=== PATIENT | male | born 1990 | race American Indian/Alaskan Native ===

== ENCOUNTER 2017-12-19 08:18 | Emergency (ER) | payer OTHER ==
--- NOTE | 2017-12-19 13:08 | Emergency Department Report ---
ED Asthma HPI - General Chief Complaint: Adult Asthma Stated Complaint: [place] Time Seen by Provider: 12/19/17 12:25 Source: patient, EMS Mode of arrival: Ambulatory Limitations: No Limitations - History of Present Illness Initial Comments: Patient is a 27-year-old male who has a past medical history of asthma who is presenting with cough cold congestion. Patient states that for the past 2-3 days he's had some increased itching coughing wheezing shortness of breath. Patient states that he was walking to work today and became very short of breath and could not breathe and had to call paramedics. Patient was received today and last treatment before arrival. Patient denies any fever or sore throat chest pain at this time. Patient did state that he had some pressure on the chest before arrival. - Related Data Previous Rx's Medication Instructions Recorded Last Taken Type Acetaminophen/Codeine [Tylenol #3] 1 tab PO Q6H PRN #15 tab 04/24/15 Unknown Rx Cyclobenzaprine HCl [Flexeril 5 MG 5 mg PO TID PRN #20 tab 04/24/15 Unknown Rx TAB] Ibuprofen [Motrin 800 MG tab] 800 mg PO Q8HR PRN #30 tablet 04/24/15 Unknown Rx Cyclobenzaprine [Flexeril 10 MG 10 mg PO TID PRN #15 tablet 06/18/15 Unknown Rx TAB] Ibuprofen [Motrin 800 MG tab] 800 mg PO Q8HR PRN #20 tablet 06/18/15 Unknown Rx Ibuprofen [Motrin] 800 mg PO Q8HR PRN #15 tablet 08/14/16 Unknown Rx ALBUTEROL Inhaler [ProAir HFA 2 puff IH QID PRN #1 inhalation 12/19/17 Unknown Rx Inhaler] Loratadine [Claritin] 10 mg PO DAILY #30 tablet 12/19/17 Unknown Rx methylPREDNISolone [Medrol Dose 4 mg PO QAM #1 pack 12/19/17 Unknown Rx Daniel] Allergies Allergy/AdvReac Type Severity Reaction Status Date / Time almond oil Allergy Anaphylaxis Verified 04/24/15 18:56 banana Allergy Anaphylaxis Verified 04/24/15 18:56 cavanaugh flavor Allergy Swelling Verified 04/24/15 18:56 ED Review of Systems ROS: Stated complaint: [place] Other details as noted in HPI Comment: All other systems reviewed and negative ED Past Medical Hx - Past Medical History Previous Medical History?: Yes Hx Asthma: Yes Additional medical history: HEART MURMUR - Surgical History Past Surgical History?: Yes Hx Appendectomy: Yes - Social History Smoking Status: Current Every Day Smoker Substance Use Type: Alcohol, Marijuana - Medications Home Medications: Home Medications Medication Instructions Recorded Confirmed Last Taken Type Acetaminophen/Codeine [Tylenol #3] 1 tab PO Q6H PRN #15 tab 04/24/15 Unknown Rx Cyclobenzaprine HCl [Flexeril 5 MG 5 mg PO TID PRN #20 tab 04/24/15 Unknown Rx TAB] Ibuprofen [Motrin 800 MG tab] 800 mg PO Q8HR PRN #30 tablet 04/24/15 Unknown Rx Cyclobenzaprine [Flexeril 10 MG 10 mg PO TID PRN #15 tablet 06/18/15 Unknown Rx TAB] Ibuprofen [Motrin 800 MG tab] 800 mg PO Q8HR PRN #20 tablet 06/18/15 Unknown Rx Ibuprofen [Motrin] 800 mg PO Q8HR PRN #15 tablet 08/14/16 Unknown Rx ALBUTEROL Inhaler [ProAir HFA 2 puff IH QID PRN #1 inhalation 12/19/17 Unknown Rx Inhaler] Loratadine [Claritin] 10 mg PO DAILY #30 tablet 12/19/17 Unknown Rx methylPREDNISolone [Medrol Dose 4 mg PO QAM #1 pack 12/19/17 Unknown Rx Daniel] ED Physical Exam - General Limitations: No Limitations General appearance: alert, in no apparent distress - Head Head exam: Present: atraumatic, normocephalic - Eye Eye exam: Present: normal appearance - ENT ENT exam: Present: mucous membranes moist - Neck Neck exam: Present: normal inspection - Respiratory Respiratory exam: Present: normal lung sounds bilaterally. Absent: respiratory distress, wheezes, rales, rhonchi - Cardiovascular Cardiovascular Exam: Present: regular rate, normal rhythm. Absent: systolic murmur, diastolic murmur, rubs, gallop - GI/Abdominal GI/Abdominal exam: Present: soft, normal bowel sounds. Absent: distended, tenderness, guarding, rebound - Rectal Rectal exam: Present: deferred - Extremities Exam Extremities exam: Present: normal inspection - Back Exam Back exam: Present: normal inspection - Neurological Exam Neurological exam: Present: alert, oriented X3 - Psychiatric Psychiatric exam: Present: normal affect, normal mood - Skin Skin exam: Present: warm, dry, intact, normal color. Absent: rash ED Course Vital Signs 12/19/17 08:53 Temperature 98.3 F Pulse Rate 73 Respiratory 18 Rate Blood Pressure 146/88 O2 Sat by Pulse 97 Oximetry ED Medical Decision Making - Medical Decision Making Patient is a 27-year-old Male who is presenting with allergic rhinitis-type symptoms with asthma. Patient will be given several minutes to help with his symptoms including albuterol inhaler and prednisone and maintenance antihistamine will be discharged home at this time. Critical care attestation.: If time is entered above; I have spent that time in minutes in the direct care of this critically ill patient, excluding procedure time. ED Disposition Clinical Impression: Allergic rhinitis Qualifiers: Allergic rhinitis trigger: unspecified Allergic rhinitis seasonality: seasonal Qualified Code(s): J30.2 - Other seasonal allergic rhinitis Asthma exacerbation Qualifiers: Asthma severity: moderate Disposition: DC-01 TO HOME OR SELFCARE Is pt being admited?: No Does the pt Need Aspirin: No Condition: Stable Instructions: Asthma (ED), Allergic Rhinitis (ED) Prescriptions: ALBUTEROL Inhaler [ProAir HFA Inhaler] 2 puff IH QID PRN #1 inhalation PRN Reason: Shortness Of Breath Loratadine [Claritin] 10 mg PO DAILY #30 tablet methylPREDNISolone [Medrol Dose Daniel] 4 mg PO QAM #1 pack Referrals: PRIMARY CARE, [Primary Care Provider] - 3-5 Days
[2017-12-19 13:30] VITALS: BP 142/99
== END 2017-12-19 13:29 | disposition home or self-care (01) ==
LOC: ED 08:18
DX: J45.901 Unspecified asthma with (acute) exacerbation (principal); J30.9 Allergic rhinitis, unspecified; F17.200 Nicotine dependence, unspecified, uncomplicated; F12.10 Cannabis abuse, uncomplicated; Z91.018 Allergy to other foods
CPT/HCPCS: 99283